=== PATIENT | female | born 1990 | race Caucasian/White ===

== ENCOUNTER 2021-06-17 04:13 | Emergency (ER) | payer MEDICAID ==
[~2021-06-17] VITALS: Ht 162.6 cm; Wt 68.0 kg
[2021-06-17] MEDS ORDERED: DOXYCYCLINE 10100 MG PO (05:21)
[2021-06-17 05:32] VITALS: BP 120/60
== END 2021-06-17 05:32 | disposition home or self-care (01) ==
LOC: M.ERS 04:13
DX: S91.311A Laceration without foreign body, right foot, initial encounter (principal); W45.8XXA Other foreign body or object entering through skin, initial encounter; Y93.89 Activity, other specified; Y92.89 Other specified places as the place of occurrence of the external cause; Y99.8 Other external cause status